=== PATIENT | female | born 1940 | race Caucasian/White ===

== ENCOUNTER → 2016-05-01 | Outpatient (CLI) | payer MEDICARE ==
[2016-05-01 15:02] LABS: ABSOLUTE EOSINOPHILS # (AUTO) 0.1 10^3/uL (0.0-0.6); ABSOLUTE LYMPHOCYTES (AUTO) 0.6 10^3/uL (0.5-4.7); ABSOLUTE MONOCYTES (AUTO) 0.2 10^3/uL (0.1-1.4); ABSOLUTE NEUT (AUTO) 2.9 10^3/uL (1.7-8.2); BASOPHILS % (AUTO) 0.6 % (0-2); EOSINOPHILS % (AUTO) 2.5 % (0-6); HEMATOCRIT 33.2 % (36.0-47.0); HEMOGLOBIN 10.6 g/dL (12.0-15.5); HGB HCT DIFFERENCE -1.4; LYMPHOCYTES % (AUTO) 16.5 % (13-45); MEAN CORPUSCULAR HEMOGLOBIN 30.9 pg (27.0-33.4); MEAN CORPUSCULAR HGB CONC 31.9 g/dL (32.0-36.0); MEAN CORPUSCULAR VOLUME 97 fl (80-97); MONOCYTES % (AUTO) 4.9 % (3-13); RED BLOOD COUNT 3.42 10^6/uL (3.72-5.28); RED CELL DISTRIBUTION WIDTH 14.3 % (11.5-14.0); SEGMENTED NEUTROPHILS % (AUTO) 75.5 % (42-78); WHITE BLOOD COUNT 3.9 10^3/uL (4.0-10.5)
[2016-05-01 15:14] LABS: APPEARANCE,URINE SLIGHTLY-CLOUDY; BILIRUBIN,URINE NEGATIVE (NEGATIVE); GLUCOSE, URINE NEGATIVE (NEGATIVE); KETONES,URINE NEGATIVE (NEGATIVE); LEUKOCYTE ESTERASE,URINE TRACE (NEGATIVE); NITRITE,URINE NEGATIVE (NEGATIVE); PROTEIN,URINE NEGATIVE (NEGATIVE); URINE SPECIFIC GRAVITY 1.014
[2016-05-01 15:27] LABS: ALBUMIN 3.1 g/dL (3.5-5.0); ANION GAP 9 (5-19); BLOOD UREA NITROGEN 24 mg/dL (7-20); CALCIUM 9.3 mg/dL (8.4-10.2); CARBON DIOXIDE 29 mmol/L (22-30); CHLORIDE 103 mmol/L (98-107); CREATININE RESULT 0.99 mg/dL (0.52-1.25); GLUCOSE 181 mg/dL (75-110); PHOSPHORUS 2.9 mg/dL (2.5-4.5); SODIUM 141.3 mmol/L (137-145)
[2016-05-03 06:36] LABS: CREATININE URINE 72.7 mg/dL (Not Estab.)
[2016-05-04 14:43] LABS: VITAMIN D 25-HYDROXY 28.6 ng/mL (30.0-100.0)
== END ==
LOC: OD 13:47
PROVIDERS: ATTEND Internal Medicine Nephrology
DX: N18.3 Chronic kidney disease, stage 3 (moderate) (principal); D63.1 Anemia in chronic kidney disease
CPT/HCPCS: 36415; 80048; 81001; 82040; 82043; 82306; 82570; 83970; 84100; 85025

== ENCOUNTER → 2016-09-10 | Outpatient (CLI) | payer MEDICARE ==
--- NOTE | 2016-09-11 13:02 | XCELERA REPORT ---
[address] [id number] Lower Extremity Arterial Evaluation Name: KENNEDY FERRELL Age: 76 yrs Gender: Female : 1940 Patient Status: Outpatient Patient Location: Study Date: 09/10/2016 12:46 PM Procedure: A color flow and duplex scan of the lower extremity arteries was performed bilaterally with velocity and waveform anaylsis. Reason For Study: ULCER Ordering Physician: FRANCINE MCKENZIE Performed By: Cathy De Los Santos Measurements and Calculations Right Left CREATIVE CONSULTANT PSV 190.3 151.6 cm/sec Prox PFA PSV -148.4 -114.4 cm/sec Prox SFA PSV 154.5 193.0 cm/sec Mid SFA PSV -127.6 160.6 cm/sec Dist SFA PSV -143.3 -153.2 cm/sec Prox Pop A PSV 88.9 124.5 cm/sec Dist BI PSV 95.0 49.7 cm/sec Dist MOLECULAR PHYSICIST PSV 41.5 55.8 cm/sec Bobby Pedis PSV -57.3 36.3 cm/sec Right Side Arterial Evaluation Normal velocity and triphasic waveforms noted from the Common Femoral artery to the Femoral artery. Biphasic with spectral broadening from the Popliteal to the infrageniculate vessels. 20-49 % stenosis at the Femoral artery. Ankle Brachial index not done due to pain on compression.. Left Side Arterial Evaluation Normal velocity and triphasic waveforms noted in the Common Femoral artery.Biphasic with spectral broadening from the Femoral artery. to the infrageniculate vessels. 20-49 % stenosis at the Femoral artery. Ankle Brachial index not pain due to on compression.. Interpretation Summary Moderate hemodynamically significant lesions in the bilateral lower extremities, on duplex imaging, at rest. : FRANCINE MCKENZIE > Francine Mckenzie
== END ==
LOC: SP 12:34
PROVIDERS: ATTEND Surgery
DX: L97.212 Non-pressure chronic ulcer of right calf with fat layer exposed (principal)
CPT/HCPCS: 93925

== ENCOUNTER → 2017-09-03 | Outpatient (CLI) | payer MEDICARE ==
[2017-09-03 12:56] LABS: APPEARANCE,URINE CLEAR; BILIRUBIN,URINE NEGATIVE (NEGATIVE); COLOR,URINE YELLOW; GLUCOSE, URINE NEGATIVE (NEGATIVE); KETONES,URINE NEGATIVE (NEGATIVE); LEUKOCYTE ESTERASE,URINE NEGATIVE (NEGATIVE); NITRITE,URINE NEGATIVE (NEGATIVE); PROTEIN,URINE NEGATIVE (NEGATIVE); URINE SPECIFIC GRAVITY 1.009; UROBILINOGEN,URINE NEGATIVE mg/dL (<2.0)
[2017-09-03 13:09] LABS: ABSOLUTE EOSINOPHILS # (AUTO) 0.1 10^3/uL (0.0-0.6); ABSOLUTE LYMPHOCYTES (AUTO) 0.5 10^3/uL (0.5-4.7); ABSOLUTE MONOCYTES (AUTO) 0.2 10^3/uL (0.1-1.4); ABSOLUTE NEUT (AUTO) 2.8 10^3/uL (1.7-8.2); BASOPHILS % (AUTO) 0.8 % (0-2); EOSINOPHILS % (AUTO) 3.3 % (0-6); HEMATOCRIT 29.5 % (36.0-47.0); HEMOGLOBIN 9.8 g/dL (12.0-15.5); LYMPHOCYTES % (AUTO) 13.9 % (13-45); MEAN CORPUSCULAR HEMOGLOBIN 29.4 pg (27.0-33.4); MEAN CORPUSCULAR HGB CONC 33.3 g/dL (32.0-36.0); MEAN CORPUSCULAR VOLUME 88 fl (80-97); MONOCYTES % (AUTO) 5.4 % (3-13); RED BLOOD COUNT 3.35 10^6/uL (3.72-5.28); RED CELL DISTRIBUTION WIDTH 16.8 % (11.5-14.0); SEGMENTED NEUTROPHILS % (AUTO) 76.6 % (42-78); TOTAL CELLS COUNTED % (AUTO) 100 %; WHITE BLOOD COUNT 3.6 10^3/uL (4.0-10.5)
[2017-09-03 13:39] LABS: PLATELET COUNT 93 10^3/uL (150-450)
[2017-09-03 13:41] LABS: ALBUMIN 3.1 g/dL (3.5-5.0); ANION GAP 9 (5-19); BLOOD UREA NITROGEN 21 mg/dL (7-20); CALCIUM 9.3 mg/dL (8.4-10.2); CARBON DIOXIDE 34 mmol/L (22-30); CHLORIDE 103 mmol/L (98-107); GLUCOSE 103 mg/dL (75-110); PHOSPHORUS 3.4 mg/dL (2.5-4.5); POTASSIUM 3.9 mmol/L (3.6-5.0); SODIUM 145.6 mmol/L (137-145)
== END ==
LOC: OD 11:40
PROVIDERS: ATTEND Internal Medicine Nephrology
DX: N18.3 Chronic kidney disease, stage 3 (moderate) (principal); D63.8 Anemia in other chronic diseases classified elsewhere; I99.9 Unspecified disorder of circulatory system; E11.9 Type 2 diabetes mellitus without complications
CPT/HCPCS: 36415; 80048; 81001; 82040; 82306; 82728; 83540; 83550; 83970; 84100; 85025

== ENCOUNTER → 2017-12-14 | Outpatient (CLI) | payer MEDICARE ==
[2017-12-14 14:09] LABS: ABSOLUTE LYMPHOCYTES (AUTO) 0.6 10^3/uL (0.5-4.7); ABSOLUTE MONOCYTES (AUTO) 0.3 10^3/uL (0.1-1.4); ABSOLUTE NEUT (AUTO) 5.2 10^3/uL (1.7-8.2); BASOPHILS % (AUTO) 0.3 % (0-2); EOSINOPHILS % (AUTO) 0.7 % (0-6); HEMOGLOBIN 9.6 g/dL (12.0-15.5); LYMPHOCYTES % (AUTO) 10.2 % (13-45); MEAN CORPUSCULAR HEMOGLOBIN 29.3 pg (27.0-33.4); MEAN CORPUSCULAR HGB CONC 33.1 g/dL (32.0-36.0); MEAN CORPUSCULAR VOLUME 88 fl (80-97); MONOCYTES % (AUTO) 4.9 % (3-13); PLATELET COUNT 136 10^3/uL (150-450); RED BLOOD COUNT 3.29 10^6/uL (3.72-5.28); RED CELL DISTRIBUTION WIDTH 19.1 % (11.5-14.0); SEGMENTED NEUTROPHILS % (AUTO) 83.9 % (42-78); TOTAL CELLS COUNTED % (AUTO) 100 %; WHITE BLOOD COUNT 6.2 10^3/uL (4.0-10.5)
[2017-12-14 14:28] LABS: ANION GAP 11 (5-19); BLOOD UREA NITROGEN 38 mg/dL (7-20); CALCIUM 8.5 mg/dL (8.4-10.2); CARBON DIOXIDE 29 mmol/L (22-30); CHLORIDE 100 mmol/L (98-107); GLUCOSE 127 mg/dL (75-110); IRON(TIBC) 36.4 ug/dL (37-170); POTASSIUM 4.2 mmol/L (3.6-5.0); SODIUM 140.1 mmol/L (137-145)
[2017-12-15 11:39] LABS: CREATININE URINE 72.7 mg/dL (Not Estab.); MICROALBUMIN URINE 3.2 ug/mL (Not Estab.)
== END ==
LOC: OD 13:19
PROVIDERS: ATTEND Internal Medicine Nephrology
DX: N18.3 Chronic kidney disease, stage 3 (moderate) (principal); D50.9 Iron deficiency anemia, unspecified; N25.81 Secondary hyperparathyroidism of renal origin; E55.9 Vitamin D deficiency, unspecified
CPT/HCPCS: 36415; 80048; 82043; 82306; 82570; 82728; 83540; 83550; 83970; 85025

== ENCOUNTER → 2018-03-19 | Outpatient (CLI) | payer MEDICARE ==
[2018-03-19 11:38] LABS: ABSOLUTE EOSINOPHILS # (AUTO) 0.1 10^3/uL (0.0-0.6); ABSOLUTE LYMPHOCYTES (AUTO) 0.6 10^3/uL (0.5-4.7); ABSOLUTE MONOCYTES (AUTO) 0.3 10^3/uL (0.1-1.4); ABSOLUTE NEUT (AUTO) 3.7 10^3/uL (1.7-8.2); BASOPHILS % (AUTO) 0.5 % (0-2); EOSINOPHILS % (AUTO) 2.5 % (0-6); HEMATOCRIT 29.2 % (36.0-47.0); HEMOGLOBIN 10.2 g/dL (12.0-15.5); LYMPHOCYTES % (AUTO) 12.3 % (13-45); MEAN CORPUSCULAR HEMOGLOBIN 31.9 pg (27.0-33.4); MEAN CORPUSCULAR HGB CONC 34.9 g/dL (32.0-36.0); MEAN CORPUSCULAR VOLUME 91 fl (80-97); MONOCYTES % (AUTO) 5.6 % (3-13); RED CELL DISTRIBUTION WIDTH 16.9 % (11.5-14.0); SEGMENTED NEUTROPHILS % (AUTO) 79.1 % (42-78); TOTAL CELLS COUNTED % (AUTO) 100 %; WHITE BLOOD COUNT 4.7 10^3/uL (4.0-10.5)
[2018-03-19 11:58] LABS: ANION GAP 12 (5-19); BLOOD UREA NITROGEN 30 mg/dL (7-20); CALCIUM 9.4 mg/dL (8.4-10.2); CARBON DIOXIDE 29 mmol/L (22-30); CHLORIDE 100 mmol/L (98-107); GLUCOSE 127 mg/dL (75-110); IRON(TIBC) 79.4 ug/dL (37-170); POTASSIUM 3.8 mmol/L (3.6-5.0); SODIUM 140.5 mmol/L (137-145)
[2018-03-19 12:00] LABS: PLATELET COUNT 91 10^3/uL (150-450)
== END ==
LOC: OD 10:59
PROVIDERS: ATTEND Internal Medicine Nephrology
DX: N18.3 Chronic kidney disease, stage 3 (moderate) (principal); D50.9 Iron deficiency anemia, unspecified; N25.81 Secondary hyperparathyroidism of renal origin; E55.9 Vitamin D deficiency, unspecified
CPT/HCPCS: 36415; 80048; 82306; 82728; 83540; 83550; 83970; 85025

== ENCOUNTER 2018-06-24 04:02 | Emergency (ER) | payer MEDICARE ==
--- NOTE | 2018-06-24 04:30 | ER Document Report ---
Doctor's Note Notes: 06/24/18 04:28 I performed a triage evaluation the patient. Patient is a pleasant 78-year-old female who tonight was found to be altered at her house. Patient herself gives a history and she is now awake and alert and says that she woke up with her shaking her and try to get her to wake up. She says that she was told that she had been confused. She says that the encouraged her to come to the ER and therefore she came to ER. Patient currently says she feels well. She said she was recently admitted to [facility]. She does have infection in the finger of her left hand which she says she is taking antibiotics for. She has a history of cirrhosis of liver for which she sometimes develops high ammonia levels. She is taking lactulose. She says she takes it 2-3 times a day. She says she otherwise feels well now and has no further concerns at this time. She denies any recent fevers. On exam patient is able answer all my questions appropriately. She does have the left middle finger wrapped. There is no redness or swelling spreading down the hand. Her abdomen is distended due to ascites. Is nontender to palpation. Her lung ryan are clear. She does have chronic edema in bilateral lower extremities with redness of the skin due to her chronic edema. At this time of ordered baseline blood work as well as ammonia level and venous blood gas to check for hypercapnia. I will order CT scan as well due to the episode of altered mental status the patient apparently had earlier tonight. Dictation of this chart was performed using voice recognition software; therefore, there may be some unintended grammatical errors. 06/24/18 04:29
[2018-06-24 04:33] LABS: ABSOLUTE BASOPHILS # (AUTO) 0.1 10^3/uL (0.0-0.2); ABSOLUTE EOSINOPHILS # (AUTO) 0.1 10^3/uL (0.0-0.6); ABSOLUTE LYMPHOCYTES (AUTO) 0.5 10^3/uL (0.5-4.7); ABSOLUTE MONOCYTES (AUTO) 0.2 10^3/uL (0.1-1.4); ABSOLUTE NEUT (AUTO) 4.6 10^3/uL (1.7-8.2); BASOPHILS % (AUTO) 1.1 % (0-2); EOSINOPHILS % (AUTO) 1.9 % (0-6); HEMATOCRIT 26.6 % (36.0-47.0); HEMOGLOBIN 9.1 g/dL (12.0-15.5); LYMPHOCYTES % (AUTO) 8.4 % (13-45); MEAN CORPUSCULAR HGB CONC 34.2 g/dL (32.0-36.0); MEAN CORPUSCULAR VOLUME 91 fl (80-97); MONOCYTES % (AUTO) 4.2 % (3-13); PLATELET COUNT 114 10^3/uL (150-450); RED BLOOD COUNT 2.94 10^6/uL (3.72-5.28); RED CELL DISTRIBUTION WIDTH 18.6 % (11.5-14.0); SEGMENTED NEUTROPHILS % (AUTO) 84.4 % (42-78); TOTAL CELLS COUNTED % (AUTO) 100 %; WHITE BLOOD COUNT 5.5 10^3/uL (4.0-10.5)
[2018-06-24 04:43] LABS: ALANINE AMINOTRANSFERASE < 6 U/L (9-52); ALBUMIN 2.6 g/dL (3.5-5.0); ALKALINE PHOSPHATASE 126 U/L (38-126); ANION GAP 7 (5-19); ASPARTATE AMINO TRANSFERASE 33 U/L (14-36); BILIRUBIN,DIRECT 0.7 mg/dL (0.0-0.4); BILIRUBIN,TOTAL 1.1 mg/dL (0.2-1.3); BLOOD UREA NITROGEN 50 mg/dL (7-20); CALCIUM 9.1 mg/dL (8.4-10.2); CARBON DIOXIDE 31 mmol/L (22-30); CHLORIDE 102 mmol/L (98-107); GLUCOSE 229 mg/dL (75-110); POTASSIUM 4.4 mmol/L (3.6-5.0); SODIUM 139.6 mmol/L (137-145); TOTAL PROTEIN 7.5 g/dL (6.3-8.2)
--- NOTE | 2018-06-24 05:18 | RADIOLOGY REPORT (SQ) ---
EXAM DESCRIPTION: XR CHEST 1 VIEW COMPLETED DATE/TME: 06/24/2018 04:27 CLINICAL HISTORY: 78 years, Female, altered mental status COMPARISON: None. NUMBER OF VIEWS: 1 TECHNIQUE: Portable chest LIMITATIONS: None. FINDINGS: Cardiomegaly with atheromatous change and ectasia of the thoracic aorta. Osteopenia. Lungs are clear. No pneumothorax IMPRESSION: Cardiomegaly. Lungs are clear copyright 2011 [employer]- All Rights Reserved
[2018-06-24 05:57] LABS: VENOUS BLOOD BASE EXCESS 6.6 mmol/L; VENOUS BLOOD HCO3 30.8 mmol/L (20-32); VENOUS BLOOD PH 7.47 (7.30-7.42)
--- NOTE | 2018-06-24 06:03 | RADIOLOGY REPORT (SQ) ---
EXAM DESCRIPTION: CT HEAD WITHOUT IV CONTRAST COMPLETED DATE/TME: 06/24/2018 04:30 CLINICAL HISTORY: 78 years, Female, altered mental status COMPARISON: None. TECHNIQUE: 196 Images stored on PACS. All CT scanners at this facility use dose modulation, iterative reconstruction, and/or weight based dosing when appropriate to reduce radiation dose to as low as reasonably achievable (ALARA). [facility]: Dose Right [facility]: CareDose [facility]: Dose Right [facility]: Teradose 4D [facility]: [employer]ByGroup LIMITATIONS: None. FINDINGS: The globes are intact. Polyps of the maxillary sinuses bilaterally. No displaced or depressed skull fracture. No intra or extra-axial hemorrhage. CT is limited for evaluation of acute infarct. No CT evidence for large or territorial acute infarct. Age-appropriate atrophy with minor small vessel ischemic change. No mass or midline shift IMPRESSION: Age-appropriate atrophy with minor small vessel ischemic change TECHNICAL DOCUMENTATION: Quality ID # 436: Final reports with documentation of one or more dose reduction techniques (e.g., Automated exposure control, adjustment of the mA and/or kV according to patient size, use of iterative reconstruction technique) copyright 2011 [employer]- All Rights Reserved
[2018-06-24 07:01] LABS: APPEARANCE,URINE SLIGHTLY-CLOUDY; BILIRUBIN,URINE NEGATIVE (NEGATIVE); GLUCOSE, URINE NEGATIVE (NEGATIVE); KETONES,URINE NEGATIVE (NEGATIVE); LEUKOCYTE ESTERASE,URINE TRACE (NEGATIVE); NITRITE,URINE NEGATIVE (NEGATIVE); PROTEIN,URINE NEGATIVE (NEGATIVE); URINE SPECIFIC GRAVITY 1.017; UROBILINOGEN,URINE NEGATIVE mg/dL (<2.0)
[2018-06-24 07:04] LABS: COLOR,URINE DARK YELLOW
--- NOTE | 2018-06-24 07:38 | ER Document Report ---
ED General - General Chief Complaint: Altered Mental Status Stated Complaint: ALTERED MENTAL STATUS Time Seen by Provider: 06/24/18 04:27 Primary Care Provider: SHILPI DIXON MD [Primary Care Provider] - Follow up as needed TRAVEL OUTSIDE OF THE U.S. IN LAST 30 DAYS: No - HPI Patient complains to provider of: Altered mental status Notes: Patient coming in for evaluation of altered mental status. Patient was evaluated by nighttime physician whose note is provided below I performed a triage evaluation the patient. Patient is a pleasant 78-year-old female who tonight was found to be altered at her house. Patient herself gives a history and she is now awake and alert and says that she woke up with her shaking her and try to get her to wake up. She says that she was told that she had been confused. She says that the encouraged her to come to the ER and therefore she came to ER. Patient currently says she feels well. She said she was recently admitted to [facility]. She does have infection in the finger of her left hand which she says she is taking antibiotics for. She has a history of cirrhosis of liver for which she sometimes develops high ammonia levels. She is taking lactulose. She says she takes it 2-3 times a day. She says she otherwise feels well now and has no further concerns at this time. She denies any recent fevers. On exam patient is able answer all my questions appropriately. She does have the left middle finger wrapped. There is no redness or swelling spreading down the hand. Her abdomen is distended due to ascites. Is nontender to palpation. Her lung ryan are clear. She does have chronic edema in bilateral lower extremities with redness of the skin due to her chronic edema. At this time of ordered baseline blood work as well as ammonia level and venous blood gas to check for hypercapnia. I will order CT scan as well due to the episode of altered mental status the patient apparently had earlier tonight. Patient coming in for evaluation of altered mental status. Patient upon my evaluation is alert and oriented. According to family members recent discharge at [facility] because of osteomyelitis in her finger currently taken antibiotics daptomycin for the osteomyelitis for which she has a PICC line in the left arm. States no fevers no chills somewhat confused between the family and the patient has had the family states patient has been home for 2 nights however was discharged from the hospital on . Patient otherwise states no other complaints denies any head pain chest pain abdominal pain nausea vomiting fevers or chills. Family member states that this morning her heard the patient crying as that she was asleep but then the patient opened her eyes and stared off into space states that the patient would not respond to her. Patient states that she thinks that she was having a very bad dream. states that he did take the patient's oxygen level while she was sleeping and was 88 patient does have oxygen that she wears as needed at home states he did place oxygen on the patient. Patient currently on 1-2 L of oxygen nasal cannula with no signs of hypoxia. Again patient has no complaints at this time - Related Data Allergies/Adverse Reactions: IV contrast Allergy (Intermediate, Uncoded 10/16/15 11:31) itching with ivp dye Past Medical History - Social History Smoking Status: Never Smoker Chew tobacco use (# tins/day): No Frequency of alcohol use: None Drug Abuse: None Family History: Reviewed & Not Pertinent Patient has suicidal ideation: No Patient has homicidal ideation: No - Past Medical History Cardiac Medical History: Reports: Hx Hypercholesterolemia, Hx Hypertension Denies: Hx Heart Attack Pulmonary Medical History: Denies: Hx Asthma Neurological Medical History: Denies: Hx Cerebrovascular Accident, Hx Seizures Endocrine Medical History: Reports: Hx Diabetes Mellitus Type 2 Renal/ Medical History: Denies: Hx Peritoneal Dialysis GI Medical History: Denies: Hx Hepatitis, Hx Hiatal Hernia, Hx Ulcer Infectious Medical History: Denies: Hx Hepatitis Past Surgical History: Reports: Hx Cholecystectomy. Denies: Hx Mastectomy, Hx Open Heart Surgery, Hx Pacemaker Review of Systems - Review of Systems Constitutional: Other - Transient altered mental state EENT: No symptoms reported Cardiovascular: No symptoms reported Respiratory: No symptoms reported Gastrointestinal: No symptoms reported Genitourinary: No symptoms reported Female Genitourinary: No symptoms reported Musculoskeletal: No symptoms reported Skin: No symptoms reported Hematologic/Lymphatic: No symptoms reported Neurological/Psychological: No symptoms reported -: Yes All other systems reviewed and negative Physical Exam - Vital signs Vitals: Temp Pulse Resp BP Pulse Ox 98.3 F 62 18 130/57 H 98 06/24/18 04:10 06/24/18 04:10 06/24/18 04:10 06/24/18 04:10 06/24/18 04:10 Interpretation: Normal - General General appearance: Appears well, Alert - HEENT Head: Normocephalic, Atraumatic Eyes: Normal Pupils: PERRL - Respiratory Respiratory status: No respiratory distress Chest status: Nontender Breath sounds: Normal Chest palpation: Normal - Cardiovascular Rhythm: Regular Heart sounds: Normal auscultation Murmur: No - Abdominal Inspection: Obese Distension: No distension Bowel sounds: Normal Tenderness: Nontender Organomegaly: No organomegaly - Back Back: Normal, Nontender - Extremities General upper extremity: Normal inspection, Nontender, Normal color, Normal ROM, Normal temperature General lower extremity: Normal inspection, Nontender, Normal ROM, Normal temperature. No: Normal color - Bilateral erythema of the lower extremities consistent with chronic venous stasis changes, Clair's sign - Neurological Neuro grossly intact: Yes Cognition: Normal Orientation: AAOx4 Rosanna Coma Scale Eye Opening: Spontaneous Rosanna Coma Scale Verbal: Oriented Norris Coma Scale Motor: Obeys Commands Rosanna Coma Scale Total: 15 Speech: Normal Motor strength normal: LUE, RUE, LLE, RLE Sensory: Normal - Psychological Associated symptoms: Normal affect, Normal mood - Skin Skin Temperature: Warm Skin Moisture: Dry Skin Color: Normal Course - Re-evaluation Re-evalutation: 06/24/18 13:04 Laboratory studies not show any signs of sepsis elevated ammonia level CT of the head chest x-ray also negative. Physical examination shows patient is alert and oriented x3 moving all 4 extremities. Have no critical pathology seen today for her altered mental state I will discharge patient home at this time she is to follow-up with her primary care physician. Family and patient agreed with this plan. - Vital Signs Vital signs: Temp Pulse Resp BP Pulse Ox 97.6 F 62 21 H 122/49 L 100 06/24/18 08:23 06/24/18 04:10 06/24/18 08:23 06/24/18 08:23 06/24/18 08:23 - Laboratory Result Diagrams: 06/24/18 04:10 06/24/18 04:10 Laboratory results interpreted by me: 06/24/18 06/24/18 06/24/18 04:10 04:10 04:18 RBC 2.94 L Hgb 9.1 L Hct 26.6 L RDW 18.6 H Plt Count 114 L Seg Neutrophils % 84.4 H Lymphocytes % 8.4 L VBG pH Carbon Dioxide 31 H BUN 50 H Creatinine 1.53 H Est GFR ( Amer) 40 L Est GFR (Non-Af Amer) 33 L Glucose 229 H POC Glucose 229 H Direct Bilirubin 0.7 H ALT < 6 L Albumin 2.6 L Urine Blood Ur Leukocyte Esterase 06/24/18 06/24/18 05:23 05:35 RBC Hgb Hct RDW Plt Count Seg Neutrophils % Lymphocytes % VBG pH 7.47 H Carbon Dioxide BUN Creatinine Est GFR ( Amer) Est GFR (Non-Af Amer) Glucose POC Glucose Direct Bilirubin ALT Albumin Urine Blood SMALL H Ur Leukocyte Esterase TRACE H Discharge - Discharge Clinical Impression: Transient altered mental state, Osteomyelitis ontreatment Condition: Good Disposition: HOME, SELF-CARE Instructions: Normal Exam and Workup ([facility]) Additional Instructions: At this time your laboratory evaluation physical examination not reveal any clear etiology for the transient altered mental state that she had earlier this morning. And highly recommend to continue all your home medications SPC prescribed follow-up with your primary care physician approximately 1 week return to the ER symptoms worsen. Referrals: SHILPI DIXON MD [Primary Care Provider] - Follow up as needed
[2018-06-24 08:44] VITALS: BP 122/49
--- NOTE | 2018-06-24 13:01 | ER Document Report ---
ED General - General Chief Complaint: Altered Mental Status Stated Complaint: ALTERED MENTAL STATUS Time Seen by Provider: 06/24/18 04:27 Primary Care Provider: SHILPI DIXON MD [Primary Care Provider] - Follow up as needed TRAVEL OUTSIDE OF THE [place] IN LAST 30 DAYS: No - Related Data Allergies/Adverse Reactions: IV contrast Allergy (Intermediate, Uncoded 10/16/15 11:31) itching with ivp dye Past Medical History - Social History Smoking Status: Never Smoker Chew tobacco use (# tins/day): No Frequency of alcohol use: None Drug Abuse: None Patient has suicidal ideation: No Patient has homicidal ideation: No - Past Medical History Cardiac Medical History: Reports: Hx Hypercholesterolemia, Hx Hypertension Denies: Hx Heart Attack Pulmonary Medical History: Denies: Hx Asthma Neurological Medical History: Denies: Hx Cerebrovascular Accident, Hx Seizures Endocrine Medical History: Reports: Hx Diabetes Mellitus Type 2 Renal/ Medical History: Denies: Hx Peritoneal Dialysis GI Medical History: Denies: Hx Hepatitis, Hx Hiatal Hernia, Hx Ulcer Infectious Medical History: Denies: Hx Hepatitis Past Surgical History: Reports: Hx Cholecystectomy. Denies: Hx Mastectomy, Hx Open Heart Surgery, Hx Pacemaker Physical Exam - Vital signs Vitals: Temp Pulse Resp BP Pulse Ox 98.3 F 62 18 130/57 H 98 06/24/18 04:10 06/24/18 04:10 06/24/18 04:10 06/24/18 04:10 06/24/18 04:10 Course - Vital Signs Vital signs: Temp Pulse Resp BP Pulse Ox 97.6 F 62 21 H 122/49 L 100 06/24/18 08:23 06/24/18 04:10 06/24/18 08:23 06/24/18 08:23 06/24/18 08:23 - Laboratory Result Diagrams: 06/24/18 04:10 06/24/18 04:10 Laboratory results interpreted by me: 06/24/18 06/24/18 06/24/18 04:10 04:10 04:18 RBC 2.94 L Hgb 9.1 L Hct 26.6 L RDW 18.6 H Plt Count 114 L Seg Neutrophils % 84.4 H Lymphocytes % 8.4 L VBG pH Carbon Dioxide 31 H BUN 50 H Creatinine 1.53 H Est GFR ( Amer) 40 L Est GFR (Non-Af Amer) 33 L Glucose 229 H POC Glucose 229 H Direct Bilirubin 0.7 H ALT < 6 L Albumin 2.6 L Urine Blood Ur Leukocyte Esterase 06/24/18 06/24/18 05:23 05:35 RBC Hgb Hct RDW Plt Count Seg Neutrophils % Lymphocytes % VBG pH 7.47 H Carbon Dioxide BUN Creatinine Est GFR ( Amer) Est GFR (Non-Af Amer) Glucose POC Glucose Direct Bilirubin ALT Albumin Urine Blood SMALL H Ur Leukocyte Esterase TRACE H Discharge - Discharge Clinical Impression: Transient altered mental state, Osteomyelitis ontreatment Condition: Good Disposition: HOME, SELF-CARE Instructions: Normal Exam and Workup ([facility]) Additional Instructions: At this time your laboratory evaluation physical examination not reveal any clear etiology for the transient altered mental state that she had earlier this morning. And highly recommend to continue all your home medications SPC presc ribed follow-up with your primary care physician approximately 1 week return to the ER symptoms worsen. Referrals: SHILPI DIXON MD [Primary Care Provider] - Follow up as needed
--- NOTE | 2018-06-24 20:49 | EKG REPORT ---
SEVERITY:- BORDERLINE ECG - SINUS RHYTHM BORDERLINE T ABNORMALITIES, DIFFUSE LEADS : Confirmed by: Elise Keenan MD 24-Jun-2018 20:49:16
== END 2018-06-24 08:44 | disposition home or self-care (01) ==
LOC: ER 04:02
DX: R41.82 Altered mental status, unspecified (principal); M86.8X8 Other osteomyelitis, other site; Z99.81 Dependence on supplemental oxygen; I10 Essential (primary) hypertension; E11.9 Type 2 diabetes mellitus without complications
CPT/HCPCS: 36415; 70450; 71045; 80053; 81001; 82140; 82803; 82962; 85025; 87086; 93005; 93010; 99285

== ENCOUNTER → 2018-11-30 | Outpatient (CLI) | payer MEDICARE ==
[2018-11-30 13:37] LABS: IRON(TIBC) 40.9 ug/dL (37-170)
== END ==
LOC: OD 11:36
PROVIDERS: ATTEND Internal Medicine Nephrology
DX: N18.3 Chronic kidney disease, stage 3 (moderate) (principal); D63.1 Anemia in chronic kidney disease
CPT/HCPCS: 36415; 82728; 83540; 83550; 84466

== ENCOUNTER → 2018-12-07 | Outpatient (CLI) | payer MEDICARE ==
[2018-12-07 11:23] LABS: ABSOLUTE EOSINOPHILS # (AUTO) 0.2 10^3/uL (0.0-0.6); ABSOLUTE LYMPHOCYTES (AUTO) 0.4 10^3/uL (0.5-4.7); ABSOLUTE MONOCYTES (AUTO) 0.2 10^3/uL (0.1-1.4); ABSOLUTE NEUT (AUTO) 2.6 10^3/uL (1.7-8.2); EOSINOPHILS % (AUTO) 4.9 % (0-6); HEMATOCRIT 31.2 % (36.0-47.0); HEMOGLOBIN 10.6 g/dL (12.0-15.5); LYMPHOCYTES % (AUTO) 11.6 % (13-45); MEAN CORPUSCULAR HEMOGLOBIN 31.7 pg (27.0-33.4); MEAN CORPUSCULAR VOLUME 93 fl (80-97); MONOCYTES % (AUTO) 6.1 % (3-13); RED BLOOD COUNT 3.34 10^6/uL (3.72-5.28); RED CELL DISTRIBUTION WIDTH 16.6 % (11.5-14.0); SEGMENTED NEUTROPHILS % (AUTO) 76.4 % (42-78); TOTAL CELLS COUNTED % (AUTO) 100 %; WHITE BLOOD COUNT 3.4 10^3/uL (4.0-10.5)
[2018-12-07 11:37] LABS: APPEARANCE,URINE SLIGHTLY-CLOUDY; BILIRUBIN,URINE NEGATIVE (NEGATIVE); COLOR,URINE YELLOW; GLUCOSE, URINE NEGATIVE (NEGATIVE); KETONES,URINE NEGATIVE (NEGATIVE); LEUKOCYTE ESTERASE,URINE NEGATIVE (NEGATIVE); NITRITE,URINE NEGATIVE (NEGATIVE); PROTEIN,URINE NEGATIVE (NEGATIVE); URINE SPECIFIC GRAVITY 1.015; UROBILINOGEN,URINE NEGATIVE mg/dL (<2.0)
[2018-12-07 11:39] LABS: ANION GAP 7 (5-19); BLOOD UREA NITROGEN 32 mg/dL (7-20); CALCIUM 8.9 mg/dL (8.4-10.2); CARBON DIOXIDE 29 mmol/L (22-30); CHLORIDE 101 mmol/L (98-107); GLUCOSE 127 mg/dL (75-110); PHOSPHORUS 3.6 mg/dL (2.5-4.5); POTASSIUM 4.2 mmol/L (3.6-5.0)
[2018-12-07 11:44] LABS: PLATELET COUNT 77 10^3/uL (150-450)
[2018-12-08 10:36] LABS: CREATININE URINE 107.8 mg/dL (Not Estab.); MICROALBUMIN URINE 10.5 ug/mL (Not Estab.)
== END ==
LOC: OD 10:35
PROVIDERS: ATTEND Internal Medicine Nephrology
DX: I12.9 Hypertensive chronic kidney disease with stage 1 through stage 4 chronic kidney disease, or unspecified chronic kidney disease (principal); N18.3 Chronic kidney disease, stage 3 (moderate); E11.22 Type 2 diabetes mellitus with diabetic chronic kidney disease; D63.1 Anemia in chronic kidney disease; E55.9 Vitamin D deficiency, unspecified
CPT/HCPCS: 36415; 80069; 81001; 82043; 82306; 82570; 83970; 85025

== ENCOUNTER 2019-06-24 19:02 | Emergency (ER) | payer MEDICARE ==
--- NOTE | 2019-06-24 20:19 | ER Document Report ---
ED General - General Chief Complaint: Altered Mental Status Stated Complaint: ALTERED MENTAL STATUS Time Seen by Provider: 06/24/19 20:05 Primary Care Provider: MARTY BRITTON MD [Primary Care Provider] - Follow up as needed Notes: Patient is an 79-year-old female that comes to the emergency department from home by EMS for chief complaint of confusion, weakness, walking less today. Symptoms started this morning per daughter, she states that she was less responsive and babbling intermittently. Intermittently patient has been oriented but she was again confused this afternoon. Patient has had somewhat large amount of diarrhea over the past several days and has been taking Imodium for this, she is on lactulose because of a history of cirrhosis, she has known ascites and is on diuretics for this. She also has a history of chronic kidney disease, type 2 diabetes, hypertension. Patient denies headache, focal numbness or weakness, shortness of breath, chest pain, abdominal pain, vomiting, fever. Daughter state that she has not had any obvious symptoms other than the confusion and weakness. They state her urine has been foul and dark. No recent hospitalizations reported. TRAVEL OUTSIDE OF THE [place] IN LAST 30 DAYS: No - Related Data Allergies/Adverse Reactions: IV contrast Allergy (Intermediate, Uncoded 06/24/19 19:12) itching with ivp dye Past Medical History - General Information source: Patient, Relative - Social History Smoking Status: Never Smoker Chew tobacco use (# tins/day): No Frequency of alcohol use: None Drug Abuse: None Lives with: Family Family History: Reviewed & Not Pertinent Patient has suicidal ideation: No Patient has homicidal ideation: No - Past Medical History Cardiac Medical History: Reports: Hx Hypercholesterolemia, Hx Hypertension Denies: Hx Heart Attack Pulmonary Medical History: Denies: Hx Asthma Neurological Medical History: Denies: Hx Cerebrovascular Accident, Hx Seizures Endocrine Medical History: Reports: Hx Diabetes Mellitus Type 2 Renal/ Medical History: Reports: Other - Chronic kidney disease. Denies: Hx Peritoneal Dialysis GI Medical History: Reports: Hx Cirrhosis. Denies: Hx Hepatitis, Hx Hiatal Hernia, Hx Ulcer Infectious Medical History: Denies: Hx Hepatitis Past Surgical History: Reports: Hx Cholecystectomy. Denies: Hx Mastectomy, Hx Open Heart Surgery, Hx Pacemaker - Immunizations Hx Diphtheria, Pertussis, Tetanus Vaccination: Yes Review of Systems - Review of Systems Constitutional: See HPI EENT: No symptoms reported Cardiovascular: No symptoms reported Respiratory: No symptoms reported Gastrointestinal: No symptoms reported Genitourinary: No symptoms reported Female Genitourinary: No symptoms reported Musculoskeletal: No symptoms reported Skin: No symptoms reported Hematologic/Lymphatic: No symptoms reported Neurological/Psychological: See HPI Physical Exam - Vital signs Vitals: Pulse Ox 99 06/24/19 19:04 - Notes Notes: GENERAL: Alert, interacts well. No acute distress. HEAD: Normocephalic, atraumatic. EYES: Pupils equal, round, and reactive to light. Extraocular movements intact. ENT: Oral mucosa dry, tongue midline. Oropharynx unremarkable. Airway patent. LUNGS: Clear to auscultation bilaterally, no wheezes, rales, or rhonchi. No respiratory distress. HEART: Regular rate and rhythm. No murmur ABDOMEN: Distention with ascites but there is no tenderness, rigidity, rebound tenderness. EXTREMITIES: Moves all 4 extremities spontaneously. Bilateral lower extremity edema with some pitting. There is a chronic healing wound with the current dressing over the right distal leg, minimal erythema but no tenderness, reportedly at baseline. BACK: no cervical, thoracic, lumbar midline tenderness. No saddle anesthesia, normal distal neurovascular exam. Moves all extremities in full range of motion. NEUROLOGICAL: Alert and oriented x3. Normal speech. Cranial nerves II through XII grossly intact. PSYCH: Normal affect, normal mood. SKIN: Warm, dry, normal turgor. No rashes or lesions noted. Course - Re-evaluation Re-evalutation: On my exam patient is oriented, conversational, pleasant, insisting she feels fine and she wants to go home. Family members do state the patient is back to her baseline but intermittently she has been confused today. She has no fever, vital signs unremarkable. CBC shows mild leukocytosis, nonspecific. Chest x- ray negative, urine does not show infection. Chemistry nonspecific, her bilirubin is elevated but this is chronic as well and her total bilirubin is only 1. Patient's ammonia is also not elevated. CT of the head is normal, she has no neurological deficits, she does have ascites and lower extremity swelling but this is reportedly at baseline as well. Her BUN and creatinine are slightly elevated, family wants her to get fluids, only gave her a very small amount because of her ascites and liver failure history. After fluids, work-up, I discussed all details with family. Patient still states she wants to go home. Family does states she is at baseline. We got the patient up and she ambulated without difficulty (with assistance which is also her baseline). Family states satisfaction and that they would like to leave and they will follow close with her provider. I offered nurse outreach case manager consult to assist at home but they declined. Discussed return precautions. Patient and family state appreciation and agreement. Stable at time of discharge. - Vital Signs Vital signs: Temp Pulse Resp BP Pulse Ox 97.3 F 15 124/46 L 100 06/25/19 01:13 06/25/19 01:13 06/25/19 01:13 06/25/19 01:13 - Laboratory Result Diagrams: 06/24/19 19:16 06/24/19 19:16 Laboratory results interpreted by me: 06/24/19 06/24/19 06/24/19 19:16 19:16 19:16 RBC 3.22 L Hgb 11.0 L Hct 31.1 L MCH 34.2 H RDW 15.9 H Plt Count 109 L Lymph % (Auto) 6.8 L Seg Neutrophils % 87.4 H PT 19.5 H APTT 36.0 H Sodium 135.2 L BUN 36 H Creatinine 1.44 H Est GFR ( Amer) 42 L Est GFR (MDRD) Non-Af 35 L Glucose 146 H Total Bilirubin 3.5 H Direct Bilirubin 1.0 H Alkaline Phosphatase 151 H Albumin 2.7 L Urine Blood Urine Urobilinogen 06/24/19 20:37 RBC Hgb Hct MCH RDW Plt Count Lymph % (Auto) Seg Neutrophils % PT APTT Sodium BUN Creatinine Est GFR ( Amer) Est GFR (MDRD) Non-Af Glucose Total Bilirubin Direct Bilirubin Alkaline Phosphatase Albumin Urine Blood MODERATE H Urine Urobilinogen 2.0 H - EKG Interpretation by Me Additional EKG results interpreted by me: EKG shows sinus bradycardia at a rate of 56, QTC of 452, normal axis, borderline T wave inversion in lead III, no ST segment changes in consecutive leads, no T wave inversions in consecutive leads. There is no significant change from prior. Discharge - Discharge Clinical Impression: Weakness, Intermittent confusion Condition: Stable Disposition: HOME, SELF-CARE Additional Instructions: Your work-up including CAT scan of the head, ammonia levels, and general labs show some mild dehydration but is overall reassuring without significant change from prior. Please follow-up with primary care for additional management including possible additional assistance at home. Return if you worsen including fevers, vomiting, difficulty breathing, abdominal pain, or any other concerning or worsening symptoms. Referrals: MARTY BRITTON MD [Primary Care Provider] - Follow up as needed
[2019-06-24 20:26] LABS: ABSOLUTE EOSINOPHILS # (AUTO) 0.1 10^3/uL (0.0-0.6); ABSOLUTE LYMPHOCYTES (AUTO) 0.5 10^3/uL (0.5-4.7); ABSOLUTE MONOCYTES (AUTO) 0.3 10^3/uL (0.1-1.4); BASOPHILS % (AUTO) 0.3 % (0-2); TOTAL CELLS COUNTED % (AUTO) 100 %
[2019-06-24 20:29] LABS: ALBUMIN 2.7 g/dL (3.5-5.0); ALKALINE PHOSPHATASE 151 U/L (38-126); ANION GAP 6 (5-19); ASPARTATE AMINO TRANSFERASE 36 U/L (14-36); BILIRUBIN,TOTAL 3.5 mg/dL (0.2-1.3); BLOOD UREA NITROGEN 36 mg/dL (7-20); CALCIUM 8.5 mg/dL (8.4-10.2); CARBON DIOXIDE 28 mmol/L (22-30); CHLORIDE 101 mmol/L (98-107); GLUCOSE 146 mg/dL (75-110); POTASSIUM 4.5 mmol/L (3.6-5.0); TOTAL PROTEIN 8.1 g/dL (6.3-8.2)
[2019-06-24 20:31] LABS: INTERNATIONAL RATION (INR) 1.63; PROTHROMBIN TIME 19.5 SEC (11.4-15.4)
[2019-06-24 20:32] LABS: ABSOLUTE NEUT (AUTO) 6.3 10^3/uL (1.7-8.2); EOSINOPHILS % (AUTO) 1.1 % (0-6); HEMATOCRIT 31.1 % (36.0-47.0); LYMPHOCYTES % (AUTO) 6.8 % (13-45); MEAN CORPUSCULAR HEMOGLOBIN 34.2 pg (27.0-33.4); MEAN CORPUSCULAR HGB CONC 35.4 g/dL (32.0-36.0); MEAN CORPUSCULAR VOLUME 97 fl (80-97); MONOCYTES % (AUTO) 4.4 % (3-13); PLATELET COUNT 109 10^3/uL (150-450); RED BLOOD COUNT 3.22 10^6/uL (3.72-5.28); RED CELL DISTRIBUTION WIDTH 15.9 % (11.5-14.0); SEGMENTED NEUTROPHILS % (AUTO) 87.4 % (42-78); WHITE BLOOD COUNT 7.2 10^3/uL (4.0-10.5)
[2019-06-24 21:05] LABS: APPEARANCE,URINE CLEAR; BILIRUBIN,URINE NEGATIVE (NEGATIVE); COLOR,URINE YELLOW; GLUCOSE, URINE NEGATIVE (NEGATIVE); KETONES,URINE NEGATIVE (NEGATIVE); LEUKOCYTE ESTERASE,URINE NEGATIVE (NEGATIVE); NITRITE,URINE NEGATIVE (NEGATIVE); PROTEIN,URINE NEGATIVE (NEGATIVE); URINE SPECIFIC GRAVITY 1.006
--- NOTE | 2019-06-24 22:07 | RADIOLOGY REPORT (SQ) ---
EXAM DESCRIPTION: XR CHEST 1 VIEW COMPLETED DATE/TME: 06/24/2019 20:14 CLINICAL HISTORY: 79 years, Female, altered mental status COMPARISON: 12/21/2011 chest NUMBER OF VIEWS: 1 TECHNIQUE: Portable chest LIMITATIONS: None. FINDINGS: Cardiomegaly with atheromatous change thoracic aorta. Osteopenia. Incompletely healed left rib fractures. Lungs are clear. No pneumothorax IMPRESSION: No acute cardiopulmonary process copyright 2010 [employer]- All Rights Reserved
--- NOTE | 2019-06-24 22:09 | RADIOLOGY REPORT (SQ) ---
CT head without contrast on 06/24/2019 at 9:38 PM CLINICAL INDICATION: Confusion TECHNIQUE: Multiple axial images are obtained throughout the head without the administration of contrast. This exam was performed according to our departmental dose-optimization program, which includes automated exposure control, adjustment of the mA and/or kV according to patient size and/or use of iterative reconstruction technique. Total DLP is 963.96 mGy*cm. COMPARISON: 06/24/2018 FINDINGS: There is mild generalized cerebral atrophy. There is no hydrocephalus. There is no CT evidence of acute infarct. There is no hemorrhage. There are no abnormal extra-axial fluid collections. There is no mass, mass effect or midline shift. No bony abnormality is noted. Mucous retention cysts are noted in the floor of the maxillary sinuses. IMPRESSION: No acute intracranial abnormality.
[2019-06-24] MEDS ORDERED: NORMAL SALINE 250 ML IV ONE (22:39)
[2019-06-25 01:17] VITALS: BP 124/46
--- NOTE | 2019-06-25 09:05 | EKG REPORT ---
SEVERITY:- ABNORMAL ECG - SINUS RHYTHM INFERIOR INFARCT, AGE INDETERMINATE : Confirmed by: Vamshi Gonzalez MD 25-Jun-2019 09:04:59
== END 2019-06-25 01:18 | disposition home or self-care (01) ==
LOC: ER 19:02
DX: R53.1 Weakness (principal); R41.0 Disorientation, unspecified; E78.00 Pure hypercholesterolemia, unspecified; E11.22 Type 2 diabetes mellitus with diabetic chronic kidney disease; I12.9 Hypertensive chronic kidney disease with stage 1 through stage 4 chronic kidney disease, or unspecified chronic kidney disease; N18.9 Chronic kidney disease, unspecified; Z90.49 Acquired absence of other specified parts of digestive tract
CPT/HCPCS: 93005; 99285; 96360; 36415; 82140; 85025; 85610; 85730; 80053; 81001; 84484; 71045; 70450; 93010; J7050